=== PATIENT | female | born 1975 | race Caucasian/White ===

== ENCOUNTER 2016-11-11 23:36 | Emergency (ER) | payer BC, OTHER ==
[~2016-11-11] VITALS: Ht 167.6 cm; Wt 97.5 kg
[~2016-11-11 23:36] MED LIST: ATOR20TA PO; DILT120C97 PO; FAMO-63 PO; METO25TA2 PO; OXYC1TAB7 PO
[2016-11-12 00:10] LABS: BASO # 0.1 x10^3/uL (0.0-0.2); BASO % 1 % (0-3); EOS % 1 % (0-3); HEMATOCRIT 39.5 % (36.0-47.0); LYMPH # 2.5 x10^3/uL (1.0-4.8); LYMPH % 33 % (24-48); MEAN CORPUSCULAR HEMOGLOBIN 30 pg (25-35); MEAN CORPUSCULAR HGB CONC 33 g/dL (31-37); MEAN CORPUSCULAR VOLUME 91 fL (79-100); MONO % 9 % (0-9); NEUT % 57 % (31-73); PLATELET COUNT 214 x10^3/uL (140-400); RED BLOOD COUNT 4.35 x10^6/uL (3.50-5.40); RED CELL DISTRIBUTION WIDTH 12.8 % (11.5-14.5); WHITE BLOOD COUNT 7.6 x10^3/uL (4.0-11.0)
[2016-11-12 00:23] LABS: CALCIUM 10.1 mg/dL (8.5-10.1); CREATININE 0.8 mg/dL (0.6-1.0); POTASSIUM 3.6 mmol/L (3.5-5.1)
[2016-11-12 00:29] LABS: ALBUMIN 3.8 g/dL (3.4-5.0); TOTAL BILIRUBIN 0.3 mg/dL (0.2-1.0); TOTAL PROTEIN 7.6 g/dL (6.4-8.2)
[2016-11-12 00:50] LABS: BILIRUBIN,URINE NEGATIVE (NEG); GLUCOSE,URINE NEGATIVE (NEG); NITRITE,URINE NEGATIVE (NEG); PROTEIN,URINE NEGATIVE (NEG-TRACE); UROBILINOGEN,URINE 0.2 mg/dL (0.2 mg/dL)
[2016-11-12 00:54] LABS: BACTERIA,URINE 0 /HPF (0-FEW); RBC,URINE 0 /HPF (0-2); SQUAMOUS EPITHELIAL CELL,UR FEW /LPF; WBC,URINE OCC /HPF (0-4)
[2016-11-12 00:57] LABS: BARBITURATES NEG (NEG); BENZODIAZEPINES NEG (NEG); CANNABINOIDS NEG (NEG); COCAINE NEG (NEG); ETHANOL, URINE NEG (NEG); METHADONE NEG (NEG); OPIATES NEG (NEG); PHENCYCLIDINE NEG (NEG)
--- NOTE | 2016-11-12 02:02 | RAD ---
PROCEDURE CT head without contrast HISTORY Left-sided weakness TECHNIQUE Noncontrast axial cross sectional CT scanning of the head was performed. FINDINGS No acute intracranial hemorrhage or midline shift or mass-effect or hydrocephalus or extra-axial fluid collection is seen. No focal hypodense area is seen to indicate an acute infarct or edema radiographically. No skull fracture or pneumocephalus is seen. No opacification of the mastoid sinuses or the paranasal sinuses is seen. The maxillary sinuses are not completely seen in this study. IMPRESSION No acute intracranial abnormality is seen. Electronically signed by: Collin Zabala MD (Nov 12, 2016 02:00:49)
[2016-11-12 02:17] VITALS: BP 115/65
--- NOTE | 2016-11-12 03:29 | ED.ADGEN ---
Past Medical History Past Medical History: A-Fib, GERD, High Cholesterol, Hypertension Additional Past Medical Histor: afib 02/26 Past Surgical History: Other Additional Past Surgical Histo: breast biopsy, right neck lymph nodes Alcohol Use: Occasionally Drug Use: None Adult General Chief Complaint Chief Complaint: NEURO SYMPTOMS/DEFICITS HPI HPI Patient is a 41 year old [woman, history of atrial fibrillation medically controlled with metoprolol, hypertension, cholesterolemia, who presents to the emergency department with a complaint of paresthesias on the left side of her face and body over the past several hours. Patient states that episode of feeling hot and flushed, she states that she later experienced a feeling as though her vision was taken her by darkness, beginning on the right side, since the left, which lasted for a few seconds. Denies any headache, any nausea or vomiting, any near-syncopal or syncopal event. Patient states that she is expressing any vision changes since that time, did have a mild left sided headache earlier as well, which now resolved. Patient states that she feels "fuzzy", on the left side of her face, arm and leg, circumferentially, states that she is expressing no weakness, denies any injuries, any fevers, chills, exposures, or similar symptoms previously. No medication changes, no ingestions. Patient ambulating without difficulty upon entering the emergency department. Review of Systems Review of Systems Constitutional: Denies fever or chills. [] Eyes: Denies change in visual acuity. [] HENT: Denies nasal congestion or sore throat. [] Respiratory: Denies cough or shortness of breath. [] Cardiovascular: Denies chest pain or edema. [] GI: Denies abdominal pain, nausea, vomiting, bloody stools or diarrhea. [] : Denies dysuria. [] Musculoskeletal: Denies back pain or joint pain. [] Integument: Denies rash. [] Neurologic: Denies focal weakness, paresthesias on the left side of her body and face. Mild left-sided headache, and episode of vision changes which is now resolved. Endocrine: Denies polyuria or polydipsia. [] Lymphatic: Denies swollen glands. [] Psychiatric: Denies depression or anxiety. [] Allergies Allergies Allergies Coded Allergies Type Severity Reaction Last Updated Verified NSAIDS (Non-Steroidal Anti-Inflamma Allergy Intermediate 09/21/15 Yes Penicillins Allergy Intermediate 09/21/15 Yes aspirin Allergy Intermediate 09/21/15 Yes ibuprofen Allergy Intermediate 09/21/15 Yes latex Allergy Intermediate 09/21/15 Yes diltiazem Allergy Unknown 09/21/15 Yes Physical Exam Physical Exam Constitutional: Well developed, well nourished, no acute distress, non-toxic appearance. [] HENT: Normocephalic, atraumatic, bilateral external ears normal, oropharynx moist, no oral exudates, nose normal. [] Eyes: PERRLA, EOMI, conjunctiva normal, no discharge. [] Neck: Normal range of motion, no tenderness, supple, no stridor. [] Cardiovascular:Heart rate regular rhythm, no murmur, S1, S2, rubs or gallops. [] Lungs & Thorax: Bilateral breath sounds clear to auscultation, no wheezing, rhonchi, rales. No chest or crepitus or tenderness. [] Abdomen: Bowel sounds normal, soft, no tenderness, no rebound, rigidity, no guarding, no masses, no pulsatile masses. [] Skin: Warm, dry, no erythema, no rash. [] Back: No tenderness, no CVA tenderness. [] Extremities: No tenderness, no cyanosis, no clubbing, ROM intact, no edema. Negative Homans sign. [] Neurologic: Alert and oriented X 3, normal motor function, patient complaining of diminished sensation circumferentially on the left upper and lower extremity , decreased sensation in the left face, motor function is intact as stated, no pronator drift, no other abnormalities identified. Stroke scale of 1 due to sensory complaint. Psychologic: Affect normal, judgement normal, mood normal. [] Current Patient Data Vital Signs Vital Signs Date Time Temp Pulse Resp B/P Pulse Ox O2 Delivery O2 Flow Rate FiO2 11/12/16 02:17 84 16 115/65 100 Room Air 11/12/16 00:22 98.2 98.2 Lab Values Laboratory Tests Test 11/11/16 23:43 11/11/16 23:59 11/12/16 00:39 POC Urine HCG, Qualitative Hcg negative (Negative) White Blood Count 7.6x10^3/uL (4.0-11.0) Red Blood Count 4.35x10^6/uL (3.50-5.40) Hemoglobin 13.0g/dL (12.0-15.5) Hematocrit 39.5% (36.0-47.0) Mean Corpuscular Volume 91fL (79-100) Mean Corpuscular Hemoglobin 30pg (25-35) Mean Corpuscular Hemoglobin Concent 33g/dL (31-37) Red Cell Distribution Width 12.8% (11.5-14.5) Platelet Count 214x10^3/uL (140-400) Neutrophils (%) (Auto) 57% (31-73) Lymphocytes (%) (Auto) 33% (24-48) Monocytes (%) (Auto) 9% (0-9) Eosinophils (%) (Auto) 1% (0-3) Basophils (%) (Auto) 1% (0-3) Neutrophils # (Auto) 4.3x10^3uL (1.8-7.7) Lymphocytes # (Auto) 2.5x10^3/uL (1.0-4.8) Monocytes # (Auto) 0.7x10^3/uL (0.0-1.1) Eosinophils # (Auto) 0.1x10^3/uL (0.0-0.7) Basophils # (Auto) 0.1x10^3/uL (0.0-0.2) Prothrombin Time 13.0SEC (11.7-14.0) Prothrombin Time INR 1.0 (0.8-1.1) PTT 25SEC (24-38) Sodium Level 142mmol/L (136-145) Potassium Level 3.6mmol/L (3.5-5.1) Chloride Level 105mmol/L (98-107) Carbon Dioxide Level 28mmol/L (21-32) Anion Gap 9 (6-14) Blood Urea Nitrogen 16mg/dL (7-20) Creatinine 0.8mg/dL (0.6-1.0) Estimated GFR (Cockcroft-Gault) 79.0 BUN/Creatinine Ratio 20 (6-20) Glucose Level 126mg/dL (70-99) H Calcium Level 10.1mg/dL (8.5-10.1) Total Bilirubin 0.3mg/dL (0.2-1.0) Aspartate Amino Transferase (AST) 14U/L (15-37) L Alanine Aminotransferase (ALT) 27U/L (14-59) Alkaline Phosphatase 78U/L (46-116) Troponin I Quantitative < 0.017ng/mL (0.000-0.055) Total Protein 7.6g/dL (6.4-8.2) Albumin 3.8g/dL (3.4-5.0) Albumin/Globulin Ratio 1.0 (1.0-1.7) Urine Collection Type Unknown Urine Color Yellow Urine Clarity Clear Urine pH 6.0 Urine Specific [place] 1.015 Urine Protein Negativemg/dL (NEG-TRACE) Urine Glucose (UA) Negativemg/dL (NEG) Urine Ketones (Stick) Negativemg/dL (NEG) Urine Blood Negative (NEG) Urine Nitrite Negative (NEG) Urine Bilirubin Negative (NEG) Urine Urobilinogen Dipstick 0.2mg/dL (0.2 mg/dL) Urine Leukocyte Esterase Negative (NEG) Urine RBC 0/HPF (0-2) Urine WBC Occ/HPF (0-4) Urine Squamous Epithelial Cells Few/LPF Urine Bacteria 0/HPF (0-FEW) Urine Mucus Slight/LPF Urine Opiates Screen Neg (NEG) Urine Methadone Screen Neg (NEG) Urine Barbiturates Neg (NEG) Urine Phencyclidine Screen Neg (NEG) Urine Amphetamine/Methamphetamine Neg (NEG) Urine Benzodiazepines Screen Neg (NEG) Urine Cocaine Screen Neg (NEG) Urine Cannabinoids Screen Neg (NEG) Urine Ethyl Alcohol Neg (NEG) Laboratory Tests 11/11/16 23:59 Laboratory Tests 11/11/16 23:59 EKG EKG EC: Sinus rhythm, heart rate 80 beats/minute, upright axis, QTC of 4:30, DC of 184, QRS of 88, no ST elevations or depressions, no evidence of acute ST abnormalities. As interpreted by me. [] Radiology/Procedures Radiology/Procedures [] [facility] [address] [place], [place] [id number] IMAGING REPORT Signed PATIENT: CHRISTINA DE LA ROSA ACCOUNT: [id number] : 1975 LOCATION: ER AGE: 41 SEX: F EXAM STATUS: REG ER ORD. PHYSICIAN: JENNIFER ATWOOD DO REASON: L sided weakness PROCEDURE: CT HEAD WO CONTRAST PROCEDURE CT head without contrast HISTORY Left-sided weakness TECHNIQUE Noncontrast axial cross sectional CT scanning of the head was performed. FINDINGS No acute intracranial hemorrhage or midline shift or mass-effect or hydrocephalus or extra-axial fluid collection is seen. No focal hypodense area is seen to indicate an acute infarct or edema radiographically. No skull fracture or pneumocephalus is seen. No opacification of the mastoid sinuses or the paranasal sinuses is seen. The maxillary sinuses are not completely seen in this study. IMPRESSION No acute intracranial abnormality is seen. Electronically signed by: Lizzy Womack MD (Nov 12, 2016 02:00:49) DICTATED and SIGNED BY: LIZZY WOMACK III, MD DATE: 11/12/16 020 CC: CARMEN CARBALLO MD; JENNIFER ATWOOD DO ~ Chest x-ray: One view: Normal cardiopulmonary silhouette, no infiltrates, no effusions, no pneumothorax, no soft tissue or bony abnormalities identified. As interpreted by me. Course & Med Decision Making Course & Med Decision Making Pertinent Labs and Imaging studies reviewed. (See chart for details) Patient with a normal neurologic examination aside from complaining of paresthesias in the face and entire left side of the body. Imaging and large her studies not reveal any evidence of abnormality in the ED. She has no concerning history or other findings at this time that would warrant issue additional evaluation in the emergency department or hospital. I did discuss( with the patient, she has spoken to her poke in, Dr. Morris, prior to coming to the emergency department, with plan for neurology evaluation if symptoms persisted. Discussed the patient that this does not appear to be any cardiac cause, and that no concerning signs were identified, discuss utility of admission to the hospital versus follow-up in the outpatient setting with neurology. Patient is comparable and agreeable with plan to follow-up with Dr. Fernandez neurology in the outpatient setting, we discussed concerning symptoms that prompt return to the ED for additional evaluation. Patient discharged home in stable condition, to continue her medications as directed, to follow-up with Dr. Chávez, and return to the ED for concerning symptoms as discussed. Dragon Disclaimer Dragon Disclaimer This electronic medical record was generated, in whole or in part, using a voice recognition dictation system. Departure Impression: Primary Impression: Paresthesias Disposition: HOME, SELF-CARE Condition: IMPROVED JENNIFER ATWOOD DO Nov 12, 2016 03:29
--- NOTE | 2016-11-12 07:19 | RAD ---
Exam: AP portable chest. History: Left-sided weakness. Comparison: 03/04/2015. Findings: The heart and mediastinal structures are within normal limits for size. Lungs are without infiltrate. No pneumothorax or pleural effusion is appreciated. Impression: 1. No acute cardiopulmonary process.
--- NOTE | 2016-11-12 07:33 | EKG ---
[facility] [address] [place] [address] Test Date: 2016-11-12 Test Time: 00:31:13 Pat Name: CHRISTINA DE LA ROSA Department: Room: Gender: F Negotiator Sales: : 1975 Requested By: JENNIFER ATWOOD Order Number: [id number] Reading MD: Measurements Intervals [place] Rate: 80 P: 48 MT: 184 QRS: 16 QRSD: 88 T: 20 QT: 370 QTc: 430 Interpretive Statements SINUS RHYTHM NO SPECIFIC ECG ABNORMALITIES RI6.01 No previous ECG available for comparison
== END 2016-11-12 02:38 | disposition home or self-care (01) ==
LOC: ER 23:36
DX: R20.8 Other disturbances of skin sensation (principal); R51 Headache; E78.00 Pure hypercholesterolemia, unspecified; I10 Essential (primary) hypertension; I48.91 Unspecified atrial fibrillation; K21.9 Gastro-esophageal reflux disease without esophagitis; Z88.0 Allergy status to penicillin; Z88.6 Allergy status to analgesic agent; Z91.040 Latex allergy status; Z88.8 Allergy status to other drugs, medicaments and biological substances
CPT/HCPCS: 36415; 70450; 71010; 80053; 80305; 81001; 81025; 84484; 85027; 85610; 85730; 93005; G0481; 99285-25

== ENCOUNTER → 2017-06-18 | Outpatient (CLI) | payer OTHER ==
[~2017-06-18] MED LIST changes: +DILT120C80 PO; -DILT120C97 PO
--- NOTE | 2017-06-18 15:34 | KCIC ---
DATE: 06/18/2017. EXAM: MAMMO ALTHEA SCREENING BILATERAL. HISTORY: Routine mammographic screening. COMPARISON: 03/19/2016. This study was interpreted with the benefit of Computerized Aided Detection (CAD). FINDINGS: The breast parenchyma shows scattered fibroglandular densities. Breast parenchyma level B.. There are no suspicious masses, microcalcifications or architectural distortion. A density superolaterally on the right is stable given differences in projection. Scattered calcifications are benign. BI-RADS CATEGORY: 2 BENIGN FINDING(S). RECOMMENDED FOLLOW-UP: 12M 12 MONTH FOLLOW-UP. PQRS compliance statement: Patient information was entered into a reminder system with a target due date 06/18/2018 for the next mammogram. Mammography is a sensitive method for finding small breast cancers, but it does not detect them all and is not a substitute for careful clinical examination. A negative mammogram does not negate a clinically suspicious finding and should not result in delay in biopsying a clinically suspicious abnormality. "Our facility is accredited by the [employer]ammography [employer]."
== END | disposition home or self-care (01) ==
LOC: KCIC MAMMO 12:20
PROVIDERS: ATTEND Family Medicine
DX: Z12.31 Encounter for screening mammogram for malignant neoplasm of breast (principal)
CPT/HCPCS: 77063; G0202; 77067

== ENCOUNTER 2017-09-13 16:03 | Emergency (ER) | payer OTHER | END 2017-09-13 17:00 | disposition home or self-care (01) | LOC: ER 16:03 | DX: L02.11 Cutaneous abscess of neck (principal); E78.00 Pure hypercholesterolemia, unspecified; I10 Essential (primary) hypertension; I48.91 Unspecified atrial fibrillation; K21.9 Gastro-esophageal reflux disease without esophagitis; Z88.0 Allergy status to penicillin; Z88.8 Allergy status to other drugs, medicaments and biological substances; Z88.6 Allergy status to analgesic agent; Z91.040 Latex allergy status | CPT/HCPCS: 99283 ==

== ENCOUNTER → 2018-09-05 | Outpatient (CLI) | payer OTHER ==
[2017-09-13 16:21] VITALS: BP 115/63
[~2018-09-05] MED LIST changes: -DILT120C80 PO; +DILT120C85 PO; +HYDR-3164 PO; +SULF1TAB24 PO
--- NOTE | 2018-09-06 09:34 | KCIC ---
Bilateral digital screening mammograms with 3-D tomosynthesis: Reason for examination: Routine screening. Comparison is made to previous studies dated 06/18/2017 and 03/19/2016. Bilateral mammograms in CC and oblique projections were obtained with 2-D imaging and 3-D tomosynthesis imaging on a Siemens Inspiration unit and reviewed on the workstation. Interpretation was made with the benefit of CAD. The skin and nipples show no abnormalities. No abnormal axillary lymph nodes are seen. The breast parenchyma shows scattered fatty and fibroglandular density. (Breast density: Category B.) There is a small parenchymal density at the 3:00 B position of the left breast which probably represents a small intramammary lymph node and is stable. There are no new dominant masses, suspicious calcifications or architectural distortion. Impression: No evidence of malignancy. Recommend routine screening. BI-RAD Category 2: Benign. "Our facility is accredited by the [employer] Mammography [employer]." This patient's information has been entered into a reminder system for the patient to be notified with the results of her examination and a target date for the next mammogram. Electronically signed by: Sherry Chin MD (09/06/2018 9:29 AM) [id number]
== END | disposition home or self-care (01) ==
LOC: KCIC MAMMO 17:21
PROVIDERS: ATTEND Family Medicine
DX: Z12.31 Encounter for screening mammogram for malignant neoplasm of breast (principal)
CPT/HCPCS: 77063; 77067

== ENCOUNTER → 2020-01-23 | Outpatient (CLI) | payer OTHER ==
[2017-09-13 16:21] VITALS: BP 115/63
[~2020-01-23] MED LIST changes: -DILT120C85 PO; +DILT120C99 PO
--- NOTE | 2020-01-23 18:11 | KCIC ---
Bilateral digital screening mammograms with 3-D tomosynthesis: Reason for examination: Routine screening. Comparison is made to previous studies dated back to 03/19/2016. Bilateral mammograms in CC and oblique projections were obtained with 2-D imaging and 3-D tomosynthesis imaging on a Siemens Inspiration unit and reviewed on the workstation. Interpretation was made with the benefit of CAD. The skin and nipples show no abnormalities. No abnormal axillary lymph nodes are seen. The breast parenchyma shows scattered fatty and fibroglandular density. (Breast density: Category B.) There is a small nodular parenchymal density which probably represents a tortuous vascular structure in the lower inner quadrant of the right breast which is stable. There is also nodular density seen on the left oblique view which appears to represent a tortuous vascular structure. There are no new dominant masses, suspicious calcifications or architectural distortion. Impression: No evidence of malignancy. Recommend routine screening. BI-RAD Category 1: Negative. "Our facility is accredited by the [employer] Mammography Program." This patient's information has been entered into a reminder system for the patient to be notified with the results of her examination and a target date for the next mammogram. Electronically signed by: Sherry Chin MD (01/23/2020 6:08 PM) [id number]
== END | disposition home or self-care (01) ==
LOC: KCIC MAMMO 15:01
PROVIDERS: ATTEND Family Medicine
DX: Z12.31 Encounter for screening mammogram for malignant neoplasm of breast (principal); N64.89 Other specified disorders of breast
CPT/HCPCS: 77063; 77067

== ENCOUNTER → 2020-04-29 | Outpatient (CLI) | payer OTHER ==
[2017-09-13 16:21] VITALS: BP 115/63
[~2020-04-29] MED LIST changes: +0.9 % SODIUM CHLORIDE 10 ML DISP.SYRIN. ID ONE; +GADOTERATE 5 MMOL/10ML VIAL. INT ART ONE; +IOHEXOL 300 MG/ML 50 ML VIAL. INT ART ONE; +LIDOCAINE 1% Multi-Dose 20 ML VIAL. ID ONE
--- NOTE | 2020-04-29 16:28 | KCIC ---
FLUOROSCOPICALLY GUIDED RIGHT SHOULDER ARTHROGRAM 1. INDICATION: The patient is a 44 years old Female who presented with recurrent right shoulder pain. 2. CONSENT: The risks, benefits, treatment options, potential complications and personnel to be involved were discussed (including the risks of radiation exposure, instruments to be used, contrast and anesthesia administration) with the patient. All questions were answered and consent was obtained. The patient indicated willingness to proceed. 3. GENERAL: a) Medication Reconciliation: The patient's medications and allergies were reviewed in the electronic medical record and reconciled to the proposed procedure/treatment. b) Positioning: The patient was placed Supine on the fluoroscopy table. c) The shoulder was then sterilely prepped and draped. d) Time Out: A time out was performed immediately prior to procedure start with the nursing, anesthesia and interventional team, correctly identifying the patient name, date of , procedure, anatomy (including marking of site and side), patient position, procedure consent form, relevant diagnostic and radiology test results, antibiotic administration, safety precautions, and procedure-specific equipment needs. e) Anesthesia Type: Local anesthesia: 2 mL 1% Lidocaine 4. PROCEDURE: a) Procedure Details: A 20g spinal needle was inserted into the shoulder joint. 2 mL Omnipaque 300 was injected to confirm intra-articular placement of needle. Contrast was observed to flow into the intra-articular space of the joint without significant resistance. 10 mL of injectate was administered into the joint . The needle was removed. Images were stored to the permanent digital archive documenting needle position. b) Injectate Contents: 0.2 mL Dotarem 20 mL Normal Saline c) Estimated Blood Loss: 0 mL RADIATION DOSE: Fluoroscopic Radiation Summary: Fluoro time: 0:10 min:sec POST PROCEDURE: a) Hemostasis: Hemostasis was achieved using light manual compression. b) Conclusion: The patient was discharged from the radiology department in stable condition. COMPLICATIONS: a) Significant Patient Complication: None If other, explain: b) Complications during the procedure: None If other, explain: 5. RESULTS: Contrast was injected into the joint. 6. IMPRESSION: SUCCESSFUL FLUOROSCOPICALLY GUIDED ARTHROGRAM OF THE RIGHT SHOULDER DESCRIBED ABOVE. Electronically signed by: Demarcus Lai DO (04/29/2020 4:25 PM) [id number]
--- NOTE | 2020-04-29 17:39 | KCIC ---
EXAMINATION: MR ARTHROGRAM OF THE RIGHT SHOULDER CLINICAL HISTORY: Right shoulder pain and decreased range of motion. History of shoulder surgery x2 TECHNIQUE: MRI shoulder arthrogram protocol. Procedural portion of the arthrogram is reported separately. COMPARISON: None FINDINGS: Prominent artifact on coronal T2-weighted sequence despite multiple repeated attempts limits evaluation. LABRUM: Circumferential labral degeneration without discrete tear. TENDONS: - Supraspinatus: Near complete recurrent tear and retraction to the glenohumeral joint. A few thin fibers may remain attached anteriorly. - Infraspinatus: Grossly intact with increase signal and diminutive appearance, compatible with post operative change and tendinosis. - Subscapularis: Mild/moderate tendinosis without full-thickness tear. - Teres minor: Intact. - Biceps Tendon: Moderate tendinosis predominantly in the intra-articular portion of the tendon. MUSCLES: Mild fatty atrophy of the supraspinatus and to a lesser extent infraspinatus muscles. GLENOHUMERAL JOINT: No full-thickness chondral defect visualized. ACROMIOCLAVICULAR JOINT: Within normal limits. BONES/MARROW: 4 tendon anchors in the humeral head related to prior rotator cuff repair. No acute fracture or suspicious marrow replacing process. IMPRESSION: Near-complete recurrent supraspinatus tendon tear and rotator cuff tendinosis/postoperative changes as described. Circumferential labral degeneration without discrete tear. Electronically signed by: Demarcus Lai DO (04/29/2020 5:36 PM) [id number]
== END | disposition home or self-care (01) ==
LOC: KCIC 14:15
PROVIDERS: ATTEND Nurse Practitioner Women's Health
DX: M25.511 Pain in right shoulder (principal); I48.91 Unspecified atrial fibrillation; Z88.0 Allergy status to penicillin; Z88.8 Allergy status to other drugs, medicaments and biological substances; Z79.899 Other long term (current) drug therapy
CPT/HCPCS: 23350; 73040; 73222; A9575; J3490; Q9967

== ENCOUNTER → 2021-03-10 | Outpatient (CLI) | payer OTHER ==
[2017-09-13 16:21] VITALS: BP 115/63
[~2021-03-10] MED LIST changes: -0.9 % SODIUM CHLORIDE 10 ML DISP.SYRIN. ID ONE; -GADOTERATE 5 MMOL/10ML VIAL. INT ART ONE; -IOHEXOL 300 MG/ML 50 ML VIAL. INT ART ONE; -LIDOCAINE 1% Multi-Dose 20 ML VIAL. ID ONE
--- NOTE | 2021-03-10 16:10 | KCIC ---
Bilateral digital screening mammograms with 3-D tomosynthesis: Reason for examination: Routine screening. Comparison is made to previous studies dated back to 03/19/2016. Bilateral mammograms in CC and oblique projections were obtained with 2-D imaging and 3-D tomosynthes is imaging on a Siemens Inspiration unit and reviewed on the workstation. Interpretation was made wit h the benefit of CAD. The skin and nipples show no abnormalities. No abnormal axillary lymph nodes are seen. The breast par enchyma shows scattered fatty and fibroglandular density. (Breast density: Category B.) There are no new dominant masses, suspicious calcifications or architectural distortion. Impression: No evidence of malignancy. Recommend routine screening. BI-RAD Category 2: Benign. "Our facility is accredited by the [employer] Mammography Program." This patient's information has been entered into a reminder system for the patient to be notified wit h the results of her examination and a target date for the next mammogram. Electronically signed by: Sherry Chin MD (03/10/2021 4:08 PM) [id number]
== END ==
LOC: KCIC MAMMO 15:11
PROVIDERS: ATTEND Family Medicine
DX: Z12.31 Encounter for screening mammogram for malignant neoplasm of breast (principal)
CPT/HCPCS: 77063; 77067